=== PATIENT | male | born 1965 | race Caucasian/White ===

== ENCOUNTER 2017-08-02 09:00 | Emergency (ER) | payer MEDICAID, OTHER ==
[~2017-08-02] VITALS: Ht 167.6 cm; Wt 58.4 kg
[~2017-08-02 09:00] MED LIST: ALBU0.63 NEB
[2017-08-02 09:01] VITALS: BP 157/99
[2017-08-02] MEDS ORDERED: HYDROcodone/APAP 5/325 TABLET PO ONE (10:00)
[2017-08-02] MEDS ORDERED: IBUPROFEN 200 MG TABLET PO ONE (10:00)
[2017-08-02] MEDS ORDERED: IBUPROFEN 200 MG TABLET ONE (10:15)
[2017-08-02] MEDS ORDERED: HYDROcodone/APAP 5/325 TABLET ONE (10:15)
== END 2017-08-02 10:55 | disposition home or self-care (01) ==
LOC: ED 10:28
DX: S39.012A Strain of muscle, fascia and tendon of lower back, initial encounter (principal); S29.012A Strain of muscle and tendon of back wall of thorax, initial encounter; J44.9 Chronic obstructive pulmonary disease, unspecified; L03.114 Cellulitis of left upper limb; H00.039 Abscess of eyelid unspecified eye, unspecified eyelid; W01.0XXA Fall on same level from slipping, tripping and stumbling without subsequent striking against object, initial encounter; Y93.89 Activity, other specified; Y99.8 Other external cause status; Y92.89 Other specified places as the place of occurrence of the external cause
CPT/HCPCS: 72072; 72110; 99284

== ENCOUNTER 2019-07-24 08:39 | Emergency (ER) | payer MEDICAID ==
[~2019-07-24] VITALS: Ht 162.6 cm; Wt 58.1 kg
[2019-07-24] MEDS ORDERED: ALBUTEROL SULFATE 2.5 MG/3 ML NPPB ONE (09:30)
--- NOTE | 2019-07-24 09:42 | NUR ---
CONSTRUCTION PROJECT ASSISTANT: PT TO ROOM FROM LOBBY
--- NOTE | 2019-07-24 09:55 | NUR ---
ASSUMED CARE OF PT AT THIS TIME FROM [facility]. AMBULATORY TO ROOM FROM [facility] WITH STEADY GAIT. FERNANDO JUAREZ AT BEDSIDE FOR EVALUATION. PT REPORTS "I HAVE ASTHMA, BEEN SHORT OF BREATH SINCE ABOUT 3AM WHEN I GOT OFF THE [employer] BUS, I'M OUT OF MY INHALER." DENIES CP OR ANY PAIN, DIZZINESS, SUAREZ, N/V/D. CONT PULSE OX, BP, CARDIAC MONITORS APPLIED. VSS. SR ON MONITOR. CALL LIGHT IN REACH. FALL PRECUATIONS IN PLACE. SIDE RAILS UPX2. RT NOTIFIED OF BREATHING TX.
[2019-07-24] MEDS ORDERED: ALBUTEROL/IPRATROPIUM 2.5MG/0.5MG, 3 ML NPPB ONE (10:00)
[2019-07-24] MEDS ORDERED: ALBUTEROL SULFATE 2.5 MG/3 ML ONE (10:09)
--- NOTE | 2019-07-24 10:19 | NUR ---
rt at bedside
[2019-07-24] MEDS ORDERED: ALBU8.5H8 INH (10:23)
[2019-07-24] MEDS ORDERED: unknown bp med PO (10:23)
--- NOTE | 2019-07-24 10:24 | NUR ---
DR. JO AT BEDSIDE FOR EVALUATION/RECHECK, DISCUSSING TEST RESULTS AND DISCHARGE POC. VSS. CALL LIGHT IN REACH.
[2019-07-24 11:05] VITALS: BP 142/93
== END 2019-07-24 11:08 | disposition home or self-care (01) ==
LOC: ED 10:59
DX: J44.1 Chronic obstructive pulmonary disease with (acute) exacerbation (principal)
CPT/HCPCS: 71046; 93005; 94640; 99283; J7512; J7613

== ENCOUNTER 2019-07-25 04:35 | Emergency (ER) | payer MEDICAID ==
[~2019-07-25] VITALS: Ht 162.6 cm; Wt 55.0 kg
[~2019-07-25 04:35] MED LIST changes: +ALBU8.5H8 INH; +unknown bp med PO
[2019-07-25 04:38] VITALS: BP 149/101
[2019-07-25] MEDS ORDERED: DEXAMETHASONE 4 MG/ML, 1ML IM ONE (05:30)
== END 2019-07-25 05:51 | disposition home or self-care (01) ==
LOC: ED 05:15
DX: J44.1 Chronic obstructive pulmonary disease with (acute) exacerbation (principal)
CPT/HCPCS: 96372; 99283; J1100

== ENCOUNTER 2019-07-28 19:03 | Emergency (ER) | payer MEDICAID ==
[~2019-07-28] VITALS: Ht 162.6 cm; Wt 57.0 kg
[2019-07-28] MEDS ORDERED: METOCLOPRAMIDE 10MG TABLET PO ONE (19:30)
[2019-07-28] MEDS ORDERED: MAALOX/HYOSCYAMINE/LIDOCAINE 45 ML BTL PO ONE (19:30)
[2019-07-28] MEDS ORDERED: METOCLOPRAMIDE 10MG TABLET ONE (19:39)
[2019-07-28] MEDS ORDERED: MAALOX/HYOSCYAMINE/LIDOCAINE 45 ML BTL ONE (19:39)
[2019-07-28 19:46] LABS: ALANINE AMINOTRANSFERASE 22 U/L (12-78); ALBUMIN 3.3 g/dL (3.4-5.0); ANION GAP 6 mmol/L (5-15); CALCIUM 7.8 mg/dL (8.5-10.1); CHLORIDE 107 mmol/L (98-107); CREATININE 0.86 mg/dL (0.7-1.3)
[2019-07-28 19:49] LABS: ALKALINE PHOSPHATASE 110 U/L (45-117); BILIRUBIN,TOTAL 0.5 mg/dL (0.2-1.0); TOTAL PROTEIN 7.1 g/dL (6.4-8.2)
[2019-07-28 19:51] LABS: MEAN CORPUSCULAR HEMOGLOBIN 20.1 pg (27.5-34.5); MEAN CORPUSCULAR VOLUME 66.8 fL (81-97); MEAN PLATELET VOLUME 8.6 fL (7.4-10.4); PLATELET COUNT 321 x10^3/uL (130-400); RED BLOOD COUNT 4.43 x10^6/uL (4.38-5.82); RED CELL DISTRIBUTION WIDTH 20.5 % (9.4-14.8)
[2019-07-28 20:15] LABS: MD YES
[2019-07-28 20:19] LABS: EOS#(MANUAL) 0.16 x10^3/uL (0.0-0.4); EOS% (MANUAL) 2 % (1-7); LYMPH#(MANUAL) 1.68 x10^3/uL (1-3.4); LYMPHS% (MANUAL) 21 % (22-44); MONOS#(MANUAL) 1.04 x10^3/uL (0.3-2.7); MONOS% (MANUAL) 13 % (2-9); SEG#(MANUAL) 5.12 x10^3/uL (1.8-6.8); SEGS% (MANUAL) 64 % (42-75)
--- NOTE | 2019-07-28 20:27 | NUR ---
Patient into room, midlevel provider at bedside. Patient complains of abdominal pain across middle of belly with palpation. RN at bedside, orders placed for imaging, medications, laboratories and urinalysis. Phlebotomists and maintenance technician to bedside almost immediately after. RN returned after electorcardiogram completed by emergency department composite technician. Patient attached to blood pressure cuff and pulsatile oxygen sensor. Blood pressure and oxygenation within normal limits. Patient encouraged to provide urine sample. RN reveiwed clean catch instructions, and patient verbalized understanding. Patient returned with urine sample and sent to lab. Awaiting lab results.
[2019-07-28 20:31] LABS: <PLATELET ESTIMATE> ADEQUATE; <PLT MORPHOLOGY> NORMAL PLT MORPH; ANISOCYTOSIS 2+; HYPOCHROMIA 1+; OVALOCYTES 1+; POLYCHROMASIA 1+; TARGET CELLS 1+
[2019-07-28 20:42] LABS: MICROSCOPIC NOT IND
[2019-07-28 21:07] VITALS: BP 122/72
[2019-07-28 21:34] LABS: CULTURE INDICATED? NO
== END 2019-07-28 22:08 | disposition home or self-care (01) ==
LOC: ED 21:23
DX: R10.84 Generalized abdominal pain (principal); B34.9 Viral infection, unspecified; J44.9 Chronic obstructive pulmonary disease, unspecified; R94.31 Abnormal electrocardiogram [ECG] [EKG]
CPT/HCPCS: 36415; 74022; 80053; 81003; 83690; 85025; 93005; 99285

== ENCOUNTER 2019-07-29 20:14 | Emergency (ER) | payer MEDICAID ==
[~2019-07-29] VITALS: Ht 162.6 cm; Wt 55.0 kg
--- NOTE | 2019-07-29 21:46 | NUR ---
Pt ambulated to room 4 with SI. Pt states his dog was ran over today and it is making him want to commit suicide. When asked about plan, pt states "I have a bunch of screws in my neck. I'd just walk out infront of a care and that'd do the trick." No previous attempts in the past. Pt a&ox4 with a flat affect. Belongings placed in locker, sitter in hallway observing patient. Will continue to monitor.
[2019-07-29 22:18] LABS: MEAN CORPUSCULAR HGB CONC 30.2 g/dL (33.2-36.2); MEAN CORPUSCULAR VOLUME 66.4 fL (81-97); MEAN PLATELET VOLUME 8.8 fL (7.4-10.4); PLATELET COUNT 352 x10^3/uL (130-400); RED BLOOD COUNT 4.31 x10^6/uL (4.38-5.82)
[2019-07-29 22:19] LABS: ALBUMIN 3.2 g/dL (3.4-5.0); ANION GAP 7 mmol/L (5-15); CALCIUM 8.4 mg/dL (8.5-10.1); CHLORIDE 106 mmol/L (98-107)
[2019-07-29 22:23] LABS: SALICYLATE LEVEL < 1.7 mg/dL (2.8-20.0)
[2019-07-29 22:29] LABS: MD YES
[2019-07-29 22:32] LABS: EOS#(MANUAL) 0.16 x10^3/uL (0.0-0.4); EOS% (MANUAL) 2 % (1-7); LYMPH#(MANUAL) 2.29 x10^3/uL (1-3.4); LYMPHS% (MANUAL) 29 % (22-44); MONOS#(MANUAL) 0.79 x10^3/uL (0.3-2.7); MONOS% (MANUAL) 10 % (2-9); SEG#(MANUAL) 4.66 x10^3/uL (1.8-6.8); SEGS% (MANUAL) 59 % (42-75)
[2019-07-29 22:34] LABS: ANISOCYTOSIS 1+; HYPOCHROMIA 1+; MICROCYTOSIS 2+; OVALOCYTES 1+
[2019-07-29 22:36] LABS: <PLATELET ESTIMATE> ADEQUATE; <PLT MORPHOLOGY> NORMAL PLT MORPH
[2019-07-29 22:45] LABS: AMPHETAMINE SCREEN, URINE Negative (Negative); BARBITURATE SCREEN, URINE Negative (Negative); BENZODIAZEPINE SCREEN, URINE Negative (Negative); CANNABINOID SCREEN, URINE Positive (Negative); COCAINE SCREEN, URINE Negative (Negative); METHADONE SCREEN, URINE Negative (Negative); OPIATE SCREEN, URINE Negative (Negative)
--- NOTE | 2019-07-29 23:43 | NUR ---
pt sleeping in hospital bed. resps even and unlabored. sitter monitoring from [facility] for safety.
[2019-07-29 23:47] VITALS: BP 182/102
--- NOTE | 2019-07-30 00:24 | NUR ---
Telepsych consult taking place.
--- NOTE | 2019-07-30 01:06 | NUR ---
Telepsych md speaking with patient now.
--- NOTE | 2019-07-30 01:55 | NUR ---
Pt verbalized understanding of dc information. Pt belongings returned to him. Pt ambulatory to dc desk.
== END 2019-07-30 01:58 | disposition home or self-care (01) ==
LOC: ED 07-30 00:31
DX: F32.9 Major depressive disorder, single episode, unspecified (principal); J44.9 Chronic obstructive pulmonary disease, unspecified; F17.200 Nicotine dependence, unspecified, uncomplicated
CPT/HCPCS: 36415; 80048; 80307; 82040; 85025; 99283

== ENCOUNTER 2019-07-31 13:30 | Emergency (ER) | payer MEDICAID ==
[~2019-07-31] VITALS: Ht 162.6 cm; Wt 56.9 kg
[2019-07-31 16:16] VITALS: BP 153/89
--- NOTE | 2019-07-31 17:19 | NUR ---
ACCOUNT AUDITOR: PT TO ROOM FROM [facility]
== END 2019-07-31 19:07 | disposition home or self-care (01) ==
LOC: ED 14:30
DX: S52.124A Nondisplaced fracture of head of right radius, initial encounter for closed fracture (principal); I10 Essential (primary) hypertension; J44.9 Chronic obstructive pulmonary disease, unspecified; W23.0XXA Caught, crushed, jammed, or pinched between moving objects, initial encounter; Y93.89 Activity, other specified; Y92.009 Unspecified place in unspecified non-institutional (private) residence as the place of occurrence of the external cause; Y99.8 Other external cause status
CPT/HCPCS: 29105; 71046; 99284

== ENCOUNTER 2019-08-07 08:10 | Emergency (ER) | payer MEDICAID ==
[~2019-08-07] VITALS: Ht 162.6 cm; Wt 58.4 kg
[2019-08-07 08:12] VITALS: BP 151/104
--- NOTE | 2019-08-07 08:58 | NUR ---
TO ROOM FROM LOBBY. NAD.
== END 2019-08-07 09:57 | disposition home or self-care (01) ==
LOC: ED 08:38
DX: S52.124A Nondisplaced fracture of head of right radius, initial encounter for closed fracture (principal); J44.9 Chronic obstructive pulmonary disease, unspecified; X58.XXXA Exposure to other specified factors, initial encounter; Y93.89 Activity, other specified; Y92.89 Other specified places as the place of occurrence of the external cause; Y99.8 Other external cause status
CPT/HCPCS: 29105; 99283

== ENCOUNTER 2019-08-10 18:32 | Emergency (ER) | payer MEDICAID ==
[~2019-08-10] VITALS: Ht 170.2 cm; Wt 70.0 kg
[2019-08-10] MEDS ORDERED: HYDROcodone/APAP 5/325 TABLET PO PRN (19:00)
[2019-08-10] MEDS ORDERED: HYDROcodone/APAP 5/325 TABLET ONE (19:39)
--- NOTE | 2019-08-10 20:27 | NUR ---
ASSIST RN: SLING APPLIED. PATIENT DISCHARGED WITH PRESCRIPTION AND INSTRUCTION. VERBALIZED UNDERSTANDING.
[2019-08-10 20:28] VITALS: BP 128/78
== END 2019-08-10 20:30 | disposition home or self-care (01) ==
LOC: ED 18:58
DX: S53.431A Radial collateral ligament sprain of right elbow, initial encounter (principal); J44.9 Chronic obstructive pulmonary disease, unspecified; F17.200 Nicotine dependence, unspecified, uncomplicated; W01.0XXA Fall on same level from slipping, tripping and stumbling without subsequent striking against object, initial encounter; Y93.89 Activity, other specified; Y92.89 Other specified places as the place of occurrence of the external cause; Y99.8 Other external cause status
CPT/HCPCS: 29105; 99283